=== PATIENT | male | born 1990 | race Hispanic/Latino ===

== ENCOUNTER 2019-08-03 10:36 | Outpatient (CLI) | payer BC ==
--- NOTE | 2019-08-03 12:34 | RAD ---
THREE VIEWS LEFT ANKLE: COMPARISON: None. HISTORY: Fall with left ankle pain. FINDINGS: Three views left ankle show no evidence of acute fracture or dislocation. Moderate lateral soft tiss ue swelling is seen. No degenerative changes are present. IMPRESSION: Soft tissue swelling without acute osseous abnormality. POS: C
--- NOTE | 2019-08-03 12:35 | RAD ---
THREE VIEWS LEFT FOOT: COMPARISON: None. HISTORY: Fall with foot and ankle pain. FINDINGS: Three views left foot show no evidence of acute fracture or dislocation. Mild diffuse soft tissue sw elling is seen. No degenerative changes are present. IMPRESSION: Soft tissue swelling without underlying osseous abnormality. POS: C
== END 2019-08-03 10:37 | disposition home or self-care (01) ==
LOC: MADRAD 10:36
PROVIDERS: ATTEND Family Medicine
DX: M79.672 Pain in left foot (principal); M79.89 Other specified soft tissue disorders

== ENCOUNTER 2025-02-07 19:53 | Emergency (ER) | payer BC, SELFPAY ==
[2025-02-07] MEDS ORDERED: Fluorescein Opthalmic Strip ONE (20:06)
[2025-02-07] MEDS ORDERED: Tetracaine 0.5% PF 4 ML BOT ONE (20:06)
[2025-02-07] MEDS ORDERED: HYDROcodone/Acetaminophen 10/325 mg Tablet ONE (20:29)
[2025-02-07] MEDS ORDERED: Acetaminophen 325 MG TAB ONE (20:29)
[2025-02-07] MEDS ORDERED: Ibuprofen 800 MG TAB ONE (20:30)
== END 2025-02-07 21:23 | disposition home or self-care (01) ==
LOC: MADERS 19:53
DX: H16.133 Photokeratitis, bilateral (principal)
CPT/HCPCS: 99283